=== PATIENT | female | born 2000 | race Two or more races ===

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

== ENCOUNTER → 2021-02-05 | Emergency (ER) | payer OTHER ==
[2017-07-31 09:44] VITALS: BP 143/86
[~2021-02-05] MED LIST: IBUP-1007 PO
== END | disposition left against medical advice (07) ==
LOC: ER 14:38
DX: Z04.1 Encounter for examination and observation following transport accident (principal); Z53.21 Procedure and treatment not carried out due to patient leaving prior to being seen by health care provider; V89.2XXA Person injured in unspecified motor-vehicle accident, traffic, initial encounter; Y93.89 Activity, other specified; Y92.89 Other specified places as the place of occurrence of the external cause; Y99.8 Other external cause status